=== PATIENT | female | born 1995 | race Caucasian/White ===

== ENCOUNTER 2025-01-07 16:01 | Emergency (ER) | payer MEDICAID, OTHER ==
[~2025-01-07] VITALS: Ht 160 cm; Wt 73.0 kg
[2025-01-07 16:04] VITALS: O2SAT 99
[2025-01-07 17:25] LABS: CREATININE 0.8 mg/dL (0.6-1.0)
[2025-01-07 17:26] LABS: UREA NITROGEN BLOOD 7 mg/dL (9-23)
[2025-01-07 17:28] LABS: ASPARTATE AMINOTRANSFERASE 19 IU/L (<34); BILIRUBIN DIRECT < 0.1 mg/dL (<=3.0); BILIRUBIN TOTAL 0.2 mg/dL (0.1-1.0); PROTEIN TOTAL 7.9 g/dL (6.0-8.3)
[2025-01-07 17:33] LABS: HCG SCREEN NEGATIVE
[2025-01-07 17:41] LABS: BASOPHILS % 0.4 % (0.0-2.0); EOSINOPHILS % 3.4 % (0.0-5.0); HEMATOCRIT. 21.8 % (36.0-48.0); HEMOGLOBIN. 7.2 g/dL (12.0-16.0); LYMPHOCYTES % 24.5 % (20.0-50.0); MEAN PLATELET VOLUME 6.9 fl (7.4-10.4); MONOCYTES % 6.3 % (2.0-8.0); NEUTROPHILS % 65.4 % (40.0-76.0); PLATELET 465 x1000/uL (130-400); RED BLOOD CELL COUNT 2.54 mill/uL (4.2-5.4); RED CELL DISTRIBUTION WIDTH 13.5 % (11.6-14.6)
[2025-01-07 20:00] VITALS: BP 103/66; PULSE 82; RESP 18; TEMP 37; O2SAT 100
[2025-01-07 21:34] LABS: GLUCOSE URINE NEGATIVE (NEGATIVE); KETONES URINE NEGATIVE (NEGATIVE); OCCULT BLOOD URINE NEGATIVE (NEGATIVE); PH URINE 5.5 (4.5-8.0); PROTEIN URINE NEGATIVE (NEGATIVE); SPECIFIC GRAVITY URINE 1.007 (1.005-1.030)
[2025-01-07 21:41] LABS: LEUKOCYTE ESTERASE URINE 1+ (NEGATIVE); NITRITE URINE NEGATIVE (NEGATIVE); UROBILINOGEN URINE 0.2 E.U./dL (0.2-1.0)
[2025-01-07 21:42] LABS: COLOR URINE STRAW (YELLOW)
[2025-01-07 21:43] LABS: CLARITY URINE SL HAZY (CLEAR)
[2025-01-07 21:44] LABS: BACTERIA URINE 1+; RBC URINE NONE SEEN /hpf (0-2); SQUAMOUS EPITHELIAL CELL URINE FEW /lpf (RARE/1+); WBC URINE 0-2 /hpf (0-2)
== END 2025-01-07 21:57 | disposition left against medical advice (07) ==
LOC: ER 16:01 → EDBEDREQTM 19:43 → EDBEDREQ 19:43 → ER 21:57 → CMPBEDREQ 01-08 08:20
DX: R14.0 Abdominal distension (gaseous) (principal); R53.1 Weakness; D64.9 Anemia, unspecified; E11.9 Type 2 diabetes mellitus without complications; Z87.19 Personal history of other diseases of the digestive system
CPT/HCPCS: 36415; 74176; 80048; 80076; 81003; 84703; 85025; 86850; 86900; 93005; 99284